=== PATIENT | female | born 1975 | race Caucasian/White ===

== ENCOUNTER 2024-09-02 10:17 | Emergency (ER) | payer OTHER ==
[2024-09-02 10:46] VITALS: BP 143/86; PULSE 95; RESP 18; TEMP 98; BMI 21.9
[2024-09-02] MEDS ORDERED: ACETAMINOPHEN 500 MG TABLET (FP) ONE (10:46)
[2024-09-02] MEDS: ACETAMINOPHEN 500 MG TABLET (FP) PO ONE (10:48)
== END 2024-09-02 11:59 | disposition home or self-care (01) ==
LOC: FER 10:17
PROC: 0XQKXZZ Repair Left Hand, External Approach (ICD-10-PCS; principal; 2024-09-02)
DX: S61.412A Laceration without foreign body of left hand, initial encounter (principal); W26.8XXA Contact with other sharp object(s), not elsewhere classified, initial encounter
CPT/HCPCS: 12002-25; 73130-TC-LT-FY; 99283-25